=== PATIENT | female | born 1965 | race Caucasian/White ===

== ENCOUNTER 2023-09-29 07:59 | Outpatient (CLI) | payer OTHER, SELFPAY ==
--- NOTE | ~2023-09-29 | CT_ITS ---
EXAMINATION: CT facial bones wo con DATE: 09/29/2023 08:33 INDICATION: Facial pain. TECHNIQUE: Computed tomography (CT) of the facial bones and maxillofacial region was performed withou t intravenous contrast. Automated exposure control and iterative reconstruction technique were employ ed. The dose-length product was 260.23 mGy-cm. COMPARISON: None. FINDINGS: The orbits are normal. There is rightward deviation of the nasal septum. There is minimal m ucosal thickening in the paranasal sinuses. The parotid glands and submandibular glands are normal. T he teeth are unremarkable. IMPRESSION: 1. No etiology for the patient's symptoms. Reviewed, dictated and finalized at location A.
== END 2023-09-29 08:00 ==
LOC: GOSHIMG 08:00
PROVIDERS: PCP Family Medicine; Visit Provider Family Medicine
DX: R51.9 Headache, unspecified (principal)
CPT/HCPCS: 70486